=== PATIENT | female | born 1995 | race Caucasian/White ===

== ENCOUNTER 2020-05-03 16:34 | Outpatient (CLI) | payer MEDICAID ==
[~2020-05-03] VITALS: Ht 170.2 cm; Wt 101.8 kg
--- NOTE | 2020-05-03 16:40 | NUR ---
Patient arrives ambulatory with FOB after being seen in office this afternoon. Patient was per Roles and sent over for FHR monitoring as FHR noted tachycardic in office. Patient changes into gown, EFM explained and placed. VS obtained. Assessment completed and patient updated on plan of care. 1715- SVE . Patient requests to be sent home. Updated that RN will notify physician cone examiner and update patient with plan of care.
[2020-05-03] MEDS ORDERED: PRENATAL (16:55)
[2020-05-03 17:30] VITALS: BP 118/74; PULSE 106; TEMP 98.2
--- NOTE | 2020-05-03 17:35 | NUR ---
Patient requesting to go home. Reviewed labor precautions and kick counts. Patient denies questions. Leaves unit ambulatory.
== END 2020-05-03 17:35 | disposition home or self-care (01) ==
LOC: LDRO 16:34 → LDR 16:40 → LDRO 17:35
DX: O62.9 Abnormality of forces of labor, unspecified (principal); Z3A.39 39 weeks gestation of pregnancy
CPT/HCPCS: OP

== ENCOUNTER 2020-05-04 03:40 | Inpatient (IN) | payer MEDICAID ==
[~2020-05-04] VITALS: Ht 170.2 cm; Wt 101.6 kg
[2020-05-04] VITALS (28 sets, daily range): BP systolic 111–154; BP diastolic 56–88; PULSE 89–120; TEMP 97.8–98.9
[~2020-05-04 03:40] MED LIST: PRENATAL
--- NOTE | 2020-05-04 04:15 | NUR ---
G2L0at 39.1 weeks gestation to LDR4 with c/o contractions. She was seen as a labor check 05/03 evening and was dilated to 2cm, she did not make cervical change and was discharged home. She states that she has continued to have contractions at home and they have gotten stronger and closer together over the last few hours. EFMs explained and applied. FHR 130 bpm and reactive. CTX irregular, q5-6 minutes, patient uncomfortable and breathing through them. VSS. SVE /-2. Plan of care reviewed.
--- NOTE | 2020-05-04 05:20 | NUR ---
SVE still 4cm but is more anterior. Patient is more uncomfortable with contractions. Dr. Avila called and given report on patient. Orders to admit in labor received.
[2020-05-04 06:11] LABS: BASO % 0.2 % (0.0-2.0); EOS % 0.2 % (0-4.0); GRAN # 10.3 (1.4-6.5); GRAN % 79.1 % (42.2-75.2); HEMATOCRIT 38.3 % (37.0-47.0); HEMOGLOBIN 12.8 g/dl (12.5-16.0); LYMPH # 1.9 (1.2-3.4); LYMPH % 14.2 % (20.0-51.0); MEAN CELL VOLUME 87 fl (80.0-100.0); MEAN CORPUSCULAR HEMOGLOBIN 29 pg (27.0-31.0); MEAN CORPUSCULAR HGB CONC 33 g/dl (33.0-37.0); MEAN PLATELET VOLUME 10.9 fl (7.4-10.4); MONO # 0.7 (0.1-0.6); MONO % 5.6 % (1.7-9.3); PLATELET COUNT 269 K/mm3 (130-400); RED BLOOD COUNT 4.41 M/mm3 (4.10-5.30); REDCELL DISTRIBUTION WIDTH-CV 14.4 % (11.5-14.5)
--- NOTE | 2020-05-04 06:35 | NUR ---
0635-Patient sitting upright for epidural placement, RAGINI Krause to room. 0640-Test dose administered by RAGINI Krause. Patient tolerated well. See anesthesia records. Repositioned WL and updated on plan of care safety. 0730-Estrada to DD, clear yellow urine return. SVE /-1. Repositioned WR.
--- NOTE | 2020-05-04 08:45 | NUR ---
0845-Dr. Avila on unit. Reviews FHR monitr. In to see patient and discuss plan of care. 0900-AROM by cervix /-1 per MD, clear fluid noted. Pitocin started per MD order and protocol at 2mu.
--- NOTE | 2020-05-04 09:50 | NUR ---
0950-Patient calls out with increased pressure, SVE by this RN /+2. Updated MD. Orders to begin pushing. 0958-Patient begins pushing moves vertex well. 1005-Request MD who is on unit to room due to deep decels with pushing efforts down to 60-70 bpm. MD evaluates one push with RN and preps for delivery discussing vacuum assisted delivery with patient. Patient consents and MD assumes pushing with patient. 1009-Vacuum is applied to head by Dr. Avila and pressure increased. Patient pushes with contraction. Moves vertex well. MD releases pressure inbetween pushingn efforts. 1011-Dr. Avila removes vacuum as head is delivered. Nuchal x1 reduced by MD. body immediately follows. Mouth & Nares of bulb suctioned by MD and infant placed on mothers abodmen. Cord clamped x2 and cut by FOB. Care of infant assumed by PILY Remy. Apgars 8/9/9. 1016-Spontaneous delivery of intact placenta by . Fundal massage firm. Lochia WNL. Pitocin bolus per MD order and protocol. EBL 200ml. R labial and Bilateral perineal lacerations repaired by MD. Mirna care provided. Updated on plan of care and safety.
--- NOTE | 2020-05-04 14:00 | NUR ---
1400-Patient up to bathroom easily voids clear yellow urine. Ambulates with staeady gait. Mirna care assisted. Ambulates to room, oriented to plan of are and room.
[2020-05-05 04:00] VITALS: BP 118/71; PULSE 69; TEMP 97.9
[2020-05-05] MEDS ORDERED: IBU600 MG PO (08:58)
[2020-05-05 09:47] VITALS: BP 125/73; PULSE 90; TEMP 98
== END 2020-05-05 11:45 | disposition home health service (06) | DRG 807 ==
LOC: LDRO 03:40 → LDR 05:23 → OB 05:23 → LDR 07:45 → OB 14:00
PROVIDERS: Obstetrics & Gynecology; ADMIT Obstetrics & Gynecology
PROC: 10D07Z6 Extraction of Products of Conception, Vacuum, Via Natural or Artificial Opening (ICD-10-PCS; principal; 2020-05-04)
PROC: 0HQ9XZZ Repair Perineum Skin, External Approach (ICD-10-PCS; 2020-05-04)
PROC: 0UQMXZZ Repair Vulva, External Approach (ICD-10-PCS; 2020-05-04)
DX: O76 Abnormality in fetal heart rate and rhythm complicating labor and delivery (principal); Z37.0 Single live birth; O69.81X0 Labor and delivery complicated by cord around neck, without compression, not applicable or unspecified; Z3A.39 39 weeks gestation of pregnancy; O70.0 First degree perineal laceration during delivery
CPT/HCPCS: OP; J2590; J7120

== ENCOUNTER 2023-02-17 03:52 | Inpatient (IN) | payer MEDICAID ==
[~2023-02-17] VITALS: Ht 172.7 cm; Wt 98.2 kg
[2023-02-17] VITALS (26 sets, daily range): BP systolic 94–127; BP diastolic 56–77; PULSE 70–111; TEMP 97.3–98.6
[~2023-02-17 03:52] MED LIST changes: +IBU600 MG PO
--- NOTE | 2023-02-17 03:55 | NUR ---
310440.0, G3L1 arrives on unit with c/o ctx that started at 0200, and poss. LOF that started at 0330. Denies any VB. Report normal movement. Changes into clean gown. EFM applied, VS obtained. Assessment completed. Pt noted to be breathing through ctx. Ctx palpate firm every 2-3min. 0410Amnitest inconclusive. SVE /-2, BOW palpated. Cervix stretchy. Plan of care reviewed with pt who verbalizes understanding. Dr. Jenkins updated on pt. Orders received. 0435Consent forms explained and signed. INT to left wrist. Routine labs obtained. Questions invited and answered. Call light within reach.
[2023-02-17] MEDS ORDERED: PERCOCET 325 MG1 TA2 PO (04:18)
[2023-02-17] MEDS ORDERED: AMOXICILLIN 50500 MG PO (04:18)
[2023-02-17] MEDS ORDERED: NORCO 325 MG-51 TAB PO (04:19)
[2023-02-17 04:56] LABS: BASO % 0.2 % (0.0-2.0); EOS % 0.3 % (0.0-4.0); GRAN # 9.7 K/mm3 (1.4-6.5); GRAN % 76.5 % (42.2-75.2); HEMATOCRIT 38.1 % (37.0-47.0); LYMPH # 2.2 K/mm3 (1.2-3.4); LYMPH % 17.5 % (20.0-51.0); MEAN CELL VOLUME 86 fl (80.0-100.0); MEAN CORPUSCULAR HEMOGLOBIN 30 pg (27-31); MEAN CORPUSCULAR HGB CONC 34 g/dl (33.0-37.0); MONO # 0.7 K/mm3 (0.1-0.6); MONO % 5.2 % (1.7-9.3); PLATELET COUNT 252 K/mm3 (130-400); RED BLOOD COUNT 4.41 M/mm3 (4.10-5.30); REDCELL DISTRIBUTION WIDTH-CV 13.4 % (11.5-14.5)
--- NOTE | 2023-02-17 05:40 | NUR ---
0540Patient requesting SVE. SVE /-2 with BBOW. Pt requesting epidural. Brian Brown HOTBED OPERATOR notified. LR bolus infusing. Plan of care reviewed with pt. Pt to birthing ball per request. 0610FHR tracing intermittently due to maternal position and habitus. Assisted to wedge left position. EFM adjusted and tracing well. Pt coached through breathing with ctx. 0615Report to Cr Cabello RN who assumes care of pt.
--- NOTE | 2023-02-17 06:42 | NUR ---
0626- RAGINI FRANCOIS AT BEDSIDE FOR EPIDURAL PLACEMENT. PATIENT ASSISTED TO SITTING ON SIDE OF BED. DIFFICULTY TRACING FHR DUE TO MATERNAL POSITION. 0635- TEST DOSE ADMINISTERED BY RAGINI FRANCOIS. PATIENT TOLERATED WELL. CONTINUED DIFFICULTY TRACING FHR. 0642- PATIENT ASSISTED TO WEDGED RIGHT, FHR TRACING WELL AT THIS TIME. THIS RN REAMINS AT BEDSIDE TO ASSESS VITAL SIGNS.
--- NOTE | 2023-02-17 08:37 | NUR ---
0817- ROLES TO BEDSIDE FOR AROM. AROM AT THIS TIME, CLEAR FLUID. SVE 9-10/100/0. THIS RN REMAINS AT BEDSIDE TO SUPPORT PATIENT. 0828- PATIENT REPORTS PRESSURE WITH CONTRACTIONS. SVE 10/100/0. ROLES NOTIFIED AT NURSES STATION. 0837- THIS RN BEGINS PUSHING WITH PATIENT.
--- NOTE | 2023-02-17 08:56 | NUR ---
0853- TO BEDSIDE TO ASSESS PATIENT PUSHING EFFORTS. PREPARES FRO DELIVERY. 0855- BEGINS PUSHING WITH PATIENT. 0856- SPONTANEOUS DELIVERY OF HEAD AND BODY AT THIS TIME. 0859- SPONTANEOUS DELIVERY OF PLACENTA. PITOCIN STARTED AT 333mU/HR ORDERED AND PER PROTOCOL.
--- NOTE | 2023-02-17 13:00 | NUR ---
1250- PATIENT REQUESTING TO VOID A THIS TIME. THIS RN TO BEDSIDE TO ASSIST PATIENT TO REST ROOM. PATIENT ASISSTED TO SITTING ON EDGE OF BED WITHOUT COMPLAINT OF DIZZINESS, PATIENT STANDS INDEPENDENTLY AND AMBULATES TO RESTROOM. PATIENT DOES NOT REPORT DIZZINESS OR FEELING LIGHT HEADED. PATIENT VOIDS, PERICARE PROVIDED, CLEAN GOWN ON. 1300- PATIENT AMBULATES TO ROOM 207, PATIENT ORIENTED TO ROOM AND UPDATED ON PLAN OF CARE.
[2023-02-18] VITALS: BP 123/64; PULSE 88; TEMP 98
[2023-02-18 04:15] VITALS: BP 104/67; PULSE 81; TEMP 97.8
[2023-02-18 07:15] VITALS: BP 106/67; PULSE 84; TEMP 98.1
[2023-02-18] MEDS ORDERED: IBU800 M1 PO (08:23)
--- NOTE | 2023-02-18 09:26 | NUR ---
Initial visit; Patient thanked Parlor Maid for offering congratulations and God's blessings for the of their son. Parlor Maid thanked family for choosing our hospital.
== END 2023-02-18 12:05 | disposition home or self-care (01) | DRG 807 ==
LOC: LDRO 03:52 → LDR 03:55 → OB 03:55
PROVIDERS: Obstetrics & Gynecology; ADMIT Obstetrics & Gynecology
PROC: 10E0XZZ Delivery of Products of Conception, External Approach (ICD-10-PCS; principal; 2023-02-17)
PROC: 0KQM0ZZ Repair Perineum Muscle, Open Approach (ICD-10-PCS; 2023-02-17)
DX: O99.62 Diseases of the digestive system complicating childbirth (principal); Z37.0 Single live birth; K21.9 Gastro-esophageal reflux disease without esophagitis; Z3A.39 39 weeks gestation of pregnancy; M04.1 Periodic fever syndromes; O99.892 Other specified diseases and conditions complicating childbirth; O70.1 Second degree perineal laceration during delivery
CPT/HCPCS: J2590; J2795; J7120

== ENCOUNTER 2023-02-20 17:36 | Emergency (ER) | payer MEDICAID ==
[~2023-02-20] VITALS: Ht 172.7 cm; Wt 95.5 kg
[~2023-02-20 17:36] MED LIST changes: +AMOXICILLIN 50500 MG PO; +IBU800 M1 PO; +NORCO 325 MG-51 TAB PO; +PERCOCET 325 MG1 TA2 PO
[2023-02-20 18:00] LABS: COLLECTION METHOD CLEAN CATCH
[2023-02-20] MEDS ORDERED: NS 1,000 ML IV ONE (18:00)
[2023-02-20 18:11] LABS: BASO % 0.4 % (0.0-2.0); EOS # 0.2 K/mm3 (0.0-0.7); EOS % 1.8 % (0.0-4.0); GRAN % 84.2 % (42.2-75.2); HEMOGLOBIN 11.5 g/dl (12.5-16.0); LYMPH # 0.7 K/mm3 (1.2-3.4); LYMPH % 8.7 % (20.0-51.0); MEAN CELL VOLUME 89 fl (80.0-100.0); MEAN CORPUSCULAR HEMOGLOBIN 30 pg (27-31); MEAN CORPUSCULAR HGB CONC 33 g/dl (33.0-37.0); MEAN PLATELET VOLUME 10.1 fl (7.4-10.4); MONO # 0.4 K/mm3 (0.1-0.6); MONO % 4.7 % (1.7-9.3); PLATELET COUNT 226 K/mm3 (130-400); RED BLOOD COUNT 3.88 M/mm3 (4.10-5.30); REDCELL DISTRIBUTION WIDTH-CV 13.5 % (11.5-14.5)
[2023-02-20 18:14] LABS: HEMATOCRIT 34.6 % (37.0-47.0)
[2023-02-20 18:25] LABS: URINE APPEARANCE Turbid (CLEAR/HAZY); URINE COLOR Amber (YELLOW); URINE PROTEIN(semi-quant) 2+ (NEGATIVE)
[2023-02-20 18:26] LABS: URINE BLOOD 3+ (NEGATIVE); URINE GLUCOSE Negative (NEGATIVE); URINE KETONE Negative (NEGATIVE); URINE NITRATE Positive (NEGATIVE); URINE RBC 20-50 /hpf (0-2)
[2023-02-20 18:28] LABS: ALBUMIN 3.1 gm/dL (3.5-5.0); BILIRUBIN,TOTAL 0.9 mg/dL (0.2-1.2); CALCIUM 9.1 mg/dL (8.4-10.2); CREATININE, serum 0.71 mg/dL (0.57-1.11); POTASSIUM 3.9 mmol/L (3.5-4.5); TOTAL PROTEIN 6.6 gm/dL (6.2-8.1)
[2023-02-20] MEDS ORDERED: CEFTIN500 MG PO (18:35)
[2023-02-20] MEDS ORDERED: cefTRIAXone 1 G in Water For Injection,Sterile 10 ML IV ONE (18:45)
[2023-02-20 18:50] VITALS: BP 121/68; PULSE 79; TEMP 98.5
== END 2023-02-20 18:48 | disposition home or self-care (01) ==
LOC: COL.ER 17:36
PROVIDERS: Physician Assistant
DX: N39.0 Urinary tract infection, site not specified (principal)
CPT/HCPCS: J0696; J7030